=== PATIENT | male | born 1935 | race Caucasian/White ===

== ENCOUNTER 2016-08-23 12:40 | Inpatient (IN) | payer OTHER, MEDICARE ==
[~2016-08-23] VITALS: Ht 172.7 cm; Wt 84.7 kg
[~2016-08-23 12:40] MED LIST: ASPIR-LOW81 MG PO; ASPIR-TRIN325 M1 PO; CELLCEPT PO; CELLCEPT500 MG PO; COREG3.125 M1 PO; Coreg PO; DUONEB 2.5-0.5 M3 ML IH; DURAGESIC25 MCG TD; Ecotrin PO; Fish Oil PO; KAPIDEX60 MG PO; LIPITOR80 MG PO; LOTREL 10/21 CAPSULE PO; LOW DOSE ASPIRI81 M1 PO; MESTINON60 MG PO; NEURONTIN300 MG PO; OXYCODONE HCL10 MG PO; PANTOPRAZOLE SO40 MG PO; PLAVIX75 MG PO; SPIRIVA1 INHALATI IH; Symbicort 160-4.5 mc IH; XARELTO20 MG PO; Zocor PO
[2016-08-23] MEDS ORDERED: TAMSULOSIN HCL0.4 MG PO (13:22)
[2016-08-23 14:18] LABS: HEMATOCRIT 37.7 % (38.0-50.0); MCH 28.5 PG (29.0-34.0); MCHC 33.4 G/DL (30.0-36.0); MCV 85.3 FL (86-99); MEAN PLAT.VOLUME 11.4 uM^3 (9.0-12.4); PLATELET COUNT 126 K/uL (156-360); RBC DIS.WIDTH-CV 13.7 % (11.8-14.6); RBC DIS.WIDTH-SD 41.7 % (39-53); RED BLOOD COUNT 4.42 M/uL (4.00-5.50); WHITE BLOOD COUNT 6.2 K/uL (4.1-10.2)
[2016-08-23 14:21] LABS: CHLORIDE 100 mEq/L (99-109); POTASSIUM 3.8 mEq/L (3.7-5.4); SODIUM 136 mEq/L (136-147)
[2016-08-23 14:24] LABS: GLUCOSE 127 mg/dL (70-99)
[2016-08-23 14:25] LABS: ANION GAP 8 MEQ/L (2-14)
[2016-08-23 14:26] LABS: TOTAL BILIRUBIN 1.2 mg/dL (0.0-1.0)
[2016-08-23 14:27] LABS: ALKALINE PHOSPHATASE 82 IU/L (3-129); GFR ESTIMATE (CALCULATED) > 59 mL/min/
[2016-08-23 14:29] LABS: UREA NITROGEN (BUN) 8 mg/dL (9-23)
[2016-08-23 14:30] LABS: CREATINE KINASE 359 IU/L (1-294)
[2016-08-23 15:24] LABS: ADD MIUA? NO; BILIRUBIN NEGATIVE; BLOOD NEGATIVE; COLOR STRAW ((YELLOW)); GLUCOSE (STRIP) NEGATIVE; KETONES NEGATIVE; LEUKOCYTES NEGATIVE; NITRITE NEGATIVE; PROTEIN (STRIP) NEGATIVE; SPECIFIC GRAVITY 1.004 (1.000-1.030); UROBILINOGEN 0.2 MG/DL (0.2-1.0)
[2016-08-23 18:47] LABS: TROP-I INTERPRETATION NEGATIVE; TROPONIN-I 0.04 ng/mL (0.0-0.30)
[2016-08-23 19:06] LABS: INFLUENZA A VIRAL ANTIGEN NEGATIVE; INFLUENZA B VIRAL ANTIGEN NEGATIVE
[2016-08-23] MEDS ORDERED: DURAGESIC75 MCG TD (21:49)
[2016-08-24 01:27] LABS: TROP-I INTERPRETATION NEGATIVE; TROPONIN-I 0.03 ng/mL (0.0-0.30)
[2016-08-24 05:56] LABS: TROP-I INTERPRETATION NEGATIVE; TROPONIN-I 0.03 ng/mL (0.0-0.30)
[2016-08-24 06:12] LABS: ALKALINE PHOSPHATASE 69 IU/L (3-129); ANION GAP 10 MEQ/L (2-14); CHLORIDE 99 MEQ/L (99-109); DIRECT BILIRUBIN 0.4 mg/dL (0.0-0.3); GFR ESTIMATE (CALCULATED) > 59 mL/min/; GLUCOSE 117 mg/dL (70-99); POTASSIUM 3.2 MEQ/L (3.7-5.4); SAMPLE HEMOLYSIS CHECK 0; SAMPLE ICTERIC CHECK 0; SAMPLE LIPEMIA CHECK 0; SODIUM 136 MEQ/L (136-147); TOTAL BILIRUBIN 1.2 MG/DL (0.0-1.0); UREA NITROGEN (BUN) 6 mg/dL (9-23)
[2016-08-24 06:24] LABS: EOSINOPHIL (%) 0.2 % (0-5); HEMATOCRIT 37.9 % (38.0-50.0); IMMATURE GRANULOCYTE (%) 0.2 % (0.0-0.7); LYMPHOCYTE COUNT 0.5 K/uL (1.0-2.8); MCH 27.3 PG (29.0-34.0); MCHC 31.9 G/DL (30.0-36.0); MCV 85.6 FL (86-99); MEAN PLAT.VOLUME 11.5 uM^3 (9.0-12.4); MONOCYTE (%) 7.5 % (3-12); MONOCYTE COUNT 0.6 K/uL (0-0.8); NEUTROPHIL (%) 86.5 % (45-76); NEUTROPHIL COUNT 7.1 K/uL (1.8-6.4); PLATELET COUNT 145 K/uL (156-360); RBC DIS.WIDTH-SD 43.7 % (39-53); RED BLOOD COUNT 4.43 M/uL (4.00-5.50)
[2016-08-24 06:26] LABS: WHITE BLOOD COUNT 8.2 K/uL (4.1-10.2)
[2016-08-24 07:24] VITALS: BP 136/68
[2016-08-24 11:40] VITALS: BP 138/66
[2016-08-24 19:00] VITALS: BP 138/65
[2016-08-24 23:49] VITALS: BP 128/65
[2016-08-25] VITALS (15 sets, daily range): BP systolic 19–179; BP diastolic 54–75
[2016-08-25 15:13] LABS: MAGNESIUM 1.5 mg/dl (1.3-2.7); POTASSIUM 3.4 MEQ/L (3.7-5.4)
[2016-08-26] VITALS (11 sets, daily range): BP systolic 112–132; BP diastolic 56–70
[2016-08-27] VITALS (8 sets, daily range): BP systolic 93–138; BP diastolic 56–69
[2016-08-27 09:07] LABS: ANION GAP 9 MEQ/L (2-14); CHLORIDE 98 MEQ/L (99-109); GFR ESTIMATE (CALCULATED) > 59 mL/min/; GLUCOSE 188 mg/dL (70-99); POTASSIUM 3.6 MEQ/L (3.7-5.4); SAMPLE HEMOLYSIS CHECK 0; SAMPLE ICTERIC CHECK 0; SAMPLE LIPEMIA CHECK 0; SODIUM 137 MEQ/L (136-147); UREA NITROGEN (BUN) 15 mg/dL (9-23)
[2016-08-27 18:55] LABS: HEMATOCRIT 40.5 % (38.0-50.0); MCH 27.4 PG (29.0-34.0); MCHC 32.1 G/DL (30.0-36.0); MCV 85.3 FL (86-99); MEAN PLAT.VOLUME 11.8 uM^3 (9.0-12.4); RBC DIS.WIDTH-CV 14.1 % (11.8-14.6); RBC DIS.WIDTH-SD 43.8 % (39-53); RED BLOOD COUNT 4.75 M/uL (4.00-5.50)
[2016-08-27 18:56] LABS: PLATELET COUNT 207 K/uL (156-360); WHITE BLOOD COUNT 12.4 K/uL (4.1-10.2)
[2016-08-28 07:04] LABS: EOSINOPHIL (%) 0 % (0-5); HEMATOCRIT 39.4 % (38.0-50.0); IMMATURE GRANULOCYTE (%) 0.5 % (0.0-0.7); IMMATURE GRANULOCYTE COUNT 0.1 K/uL; LYMPHOCYTE COUNT 0.4 K/uL (1.0-2.8); MCH 27.2 PG (29.0-34.0); MCV 84.9 FL (86-99); MEAN PLAT.VOLUME 12.1 uM^3 (9.0-12.4); MONOCYTE COUNT 0.3 K/uL (0-0.8); NEUTROPHIL (%) 92.7 % (45-76); NEUTROPHIL COUNT 9.8 K/uL (1.8-6.4); PLATELET COUNT 207 K/uL (156-360); RBC DIS.WIDTH-CV 14.3 % (11.8-14.6); RBC DIS.WIDTH-SD 43.6 % (39-53); RED BLOOD COUNT 4.64 M/uL (4.00-5.50); WHITE BLOOD COUNT 10.6 K/uL (4.1-10.2)
[2016-08-28 07:18] LABS: ANION GAP 10 MEQ/L (2-14); CHLORIDE 99 MEQ/L (99-109); GFR ESTIMATE (CALCULATED) > 59 mL/min/; GLUCOSE 161 mg/dL (70-99); POTASSIUM 3.5 MEQ/L (3.7-5.4); SAMPLE HEMOLYSIS CHECK 0; SAMPLE ICTERIC CHECK 0; SAMPLE LIPEMIA CHECK 0; SODIUM 138 MEQ/L (136-147); UREA NITROGEN (BUN) 15 mg/dL (9-23)
[2016-08-28 11:22] LABS: MAGNESIUM 1.6 mg/dl (1.3-2.7)
[2016-08-29 16:57] VITALS: BP 134/61
[2016-08-29 19:57] VITALS: BP 134/64
[2016-08-29 23:31] VITALS: BP 126/68
[2016-08-30 07:30] VITALS: BP 133/79; BP 148/85; BP 99/61
[2016-08-30 10:20] LABS: EOSINOPHIL (%) 0 % (0-5); HEMATOCRIT 41.5 % (38.0-50.0); IMMATURE GRANULOCYTE (%) 0.6 % (0.0-0.7); IMMATURE GRANULOCYTE COUNT 0.1 K/uL; LYMPHOCYTE COUNT 0.9 K/uL (1.0-2.8); MCH 27.4 PG (29.0-34.0); MCHC 32.5 G/DL (30.0-36.0); MCV 84.3 FL (86-99); MONOCYTE (%) 3.1 % (3-12); MONOCYTE COUNT 0.4 K/uL (0-0.8); PLATELET COUNT 265 K/uL (156-360); RBC DIS.WIDTH-CV 14.2 % (11.8-14.6); RBC DIS.WIDTH-SD 43.6 % (39-53); RED BLOOD COUNT 4.92 M/uL (4.00-5.50); WHITE BLOOD COUNT 12.4 K/uL (4.1-10.2)
[2016-08-30 10:46] LABS: ANION GAP 11 MEQ/L (2-14); CHLORIDE 97 MEQ/L (99-109); GFR ESTIMATE (CALCULATED) > 59 mL/min/; GLUCOSE 203 mg/dL (70-99); POTASSIUM 3.7 MEQ/L (3.7-5.4); SAMPLE HEMOLYSIS CHECK 0; SAMPLE ICTERIC CHECK 0; SAMPLE LIPEMIA CHECK 0; SODIUM 136 MEQ/L (136-147); UREA NITROGEN (BUN) 14 mg/dL (9-23)
[2016-08-30 11:51] VITALS: BP 129/72
[2016-08-30 16:06] VITALS: BP 133/64
[2016-08-30 18:20] LABS: TROP-I INTERPRETATION NEGATIVE; TROPONIN-I 0.02 ng/mL (0.0-0.30)
[2016-08-30 21:24] VITALS: BP 142/69
[2016-08-30 21:25] VITALS: BP 140/77; BP 144/65
[2016-08-31 00:13] LABS: TROP-I INTERPRETATION NEGATIVE; TROPONIN-I 0.02 ng/mL (0.0-0.30)
[2016-08-31 06:31] LABS: TROP-I INTERPRETATION NEGATIVE; TROPONIN-I 0.04 ng/mL (0.0-0.30)
[2016-08-31 06:47] VITALS: BP 157/74
[2016-08-31] MEDS ORDERED: PREDNISONE5 MG PO (10:48)
[2016-08-31] MEDS ORDERED: MIDODRINE HCL5 MG PO (10:48)
[2016-08-31] MEDS ORDERED: ADVAIR HFA120 INHALA IH (10:48)
[2016-08-31] MEDS ORDERED: CEFDINIR300 MG PO (10:48)
== END 2016-08-31 13:58 | disposition home health service (06) | DRG 190 ==
LOC: EME → EDBD 12:40 → EDOF 22:15 → 5WEST 22:15 → 5EAST 08-24 12:34
PROVIDERS: Emergency Medicine; Hospitalist; Internal Medicine; Physician Assistant; Physician Assistant Medical
DX: J44.1 Chronic obstructive pulmonary disease with (acute) exacerbation (principal); J96.21 Acute and chronic respiratory failure with hypoxia; I47.2 Ventricular tachycardia; E87.6 Hypokalemia; G70.00 Myasthenia gravis without (acute) exacerbation; I95.1 Orthostatic hypotension; I10 Essential (primary) hypertension; I25.10 Atherosclerotic heart disease of native coronary artery without angina pectoris; E66.9 Obesity, unspecified; Z68.28 Body mass index [BMI] 28.0-28.9, adult; Z95.5 Presence of coronary angioplasty implant and graft; Z87.891 Personal history of nicotine dependence; I25.5 Ischemic cardiomyopathy; I48.0 Paroxysmal atrial fibrillation; I35.0 Nonrheumatic aortic (valve) stenosis; E78.5 Hyperlipidemia, unspecified
CPT/HCPCS: 70450; 71010; 73502; 73564; 74177; 80048; 80053; 80076; 81003; 82550; 83735; 83880; 84100; 84132; 84484; 85025; 85027; 87502; 93005; 94640; 94640 76; 94760; 94799; 97530 GO; 97530 GP; 99202; 99281; 99285; G0378; J0696; J1644; J2920; J2930; J3010; J7030; J7050; J7512; J7517